=== PATIENT | male | born 1950 | race Caucasian/White ===

== ENCOUNTER 2022-05-31 14:58 | Emergency (ER) | payer OTHER ==
[~2022-05-31] VITALS: Ht 175.3 cm; Wt 77.1 kg
[2022-05-31 15:01] VITALS: BP 151/85
--- NOTE | 2022-05-31 15:30 | NUR ---
72/M BIBA FROM STRE[address] C/O RIGHT KNEE PAIN S/P FALL LAST NIGHT. PT DENIES LOC OR HEAD INJURY. PMH: HTN
--- NOTE | 2022-05-31 16:58 | NUR ---
PT CALLED IN LOBBY , NO ANSWER
--- NOTE | 2022-05-31 17:15 | NUR ---
left prior to dc. pt called in lobby. no answer
== END 2022-05-31 17:15 | disposition home or self-care (01) ==
LOC: MED 14:58
DX: M25.561 Pain in right knee (principal)
CPT/HCPCS: 73562; 99283